=== PATIENT | male | born 1960 | race Caucasian/White ===

== ENCOUNTER 2016-10-27 03:43 | Inpatient (IN) | payer MEDICARE, MEDICAID ==
[~2016-10-27] VITALS: Ht 172.7 cm; Wt 114.0 kg
[2016-10-27] VITALS (8 sets, daily range): BP systolic 79–149; BP diastolic 50–82
--- NOTE | ~2016-10-27 | CON ---
[place], [place] REPORT OF CONSULTATION NAME: ANKUSH VALDEZ JR [facility] [id number] UNIT #: [id number] ROOM: 529 DOCTOR: [facility] BIRTH[facility]: 62 DOS: 10/30/2016 HISTORY OF PRESENT ILLNESS: The patient has a cold limb, right lower extremity, below the knee and cannot move the ankle on the right side or the toes with severe pain, probably total loss of circulation below the knee, most likely it could have happened a few hours ago and according to history, probably may not salvage the right lower extremity below the knee, but we will try to do the angiogram and try to reestablish the flow and starting the heparin right away. The patient has history of neuropathy with diabetes. He felt that is what caused the problem and he came through the Emergency Room. The patient did not feel any chest pain, lightheadedness, or shortness of breath. Quit smoking 5 weeks ago. The patient was a chronic smoker. The patient complained of numbness, pain in the right leg. He was ambulating prior to that and now he cannot ambulate and he does not have any feeling in the right foot or the ankle, or right lower extremity below the knee. He is able to bend the knee and bend at the hip, but below that he is going cold as an ice. No syncope or presyncope. PHYSICAL EXAMINATION: VITAL SIGNS: Afebrile, temperature 98.3, heart rate is about 60, respiratory rate is 20, blood pressure 106/48. NECK: Supple. LUNGS: No rales. HEART: S1, S2 regular. No gallops. ABDOMEN: Soft. EXTREMITIES: Pale on the right lower extremity, some extent left, and cool to touch. No pulses. Arterial study shows no flow in the right lower extremity; left, there is some flow, but still hard to get the ankle-brachial index with severe atherosclerotic vessels. Venous Doppler, negative, no deep vein thrombosis. Color is good. Not able to move the ankle or the foot on the right side. Left side is intact. RECTAL: Deferred and unrelated. GENITAL: Deferred and unrelated. SKIN: No open wounds were noted. Bowie classification 5 on the peripheral arterial disease. LABORATORY DATA: Electrolytes are unremarkable. BUN is 12, creatinine is 1, GFR is normal. Liver functions are unremarkable. Hemoglobin is 15.4, WBC count is 6.8, and platelet count is 144 optimal. Urine is positive for more than 100,000 Proteus mirabilis. So, begin antibiotics. Venous Doppler unremarkable. ASSESSMENT: The patient is diabetic and has ischemic limb, right lower extremity below the knee. Severe peripheral arterial disease with no deep vein thrombosis, and diabetic neuropathy and history of hypertension. PLAN: Peripheral arteriogram and intervention, possible thrombolysis and vascular surgical consult, but the patient was warned the chance there is no sensation, unable to move the ankle and the foot with a lot of pain, it is unlikely that it is a viable extremity, right side below the knee potential amputation was explained and discussed with the nursing staff also. Options, [place], [place] REPORT OF CONSULTATION NAME: ANKUSH VALDEZ JR UNIT #: [id number] ROOM: 529 DOCTOR: [facility] BIRTH[facility]: 62 procedures, complications, morbidity, mortality, and risks were explained. Prognosis is guarded. I will discuss with the hospitalist. SIDNEY LEWIS MD CM:CONSTR:REPORT OF CONSULTATION [id number] 11/01/16 0717 venessa LOPEZ DO
[~2016-10-27 03:43] MED LIST: AMARYL4 MG PO; AMITRIPTYLINE25 MG PO; AMLODIPINE5 MG PO; ASPIRIN81 M1 PO; CELEXA20 MG; CIPROFLOXACIN250 MG PO; CYCLOBENZAPRINE10 MG PO; FUROSEMIDE PO; FUROSEMIDE40 MG PO; GABAPENTIN300 MG PO; HYDROCODONE BIT1 T11 PO; JANUVIA100 MG PO; KCL PO; KEFLEX500 M1 PO; LANTUS SOLOS100 U/M1 IJ; LISINOPRIL20 MG PO; Lopressor25 MG; METFORMIN1000 MG; METOPROLOL TART50 M1 PO; NAPROXEN500 M1 PO; NORVASC2.5 MG PO; NOVOLOG 70/30 M10 ML SC; NOVOLOG FLEX100 U/ML IJ; PRAVACHOL20 MG; PRAVASTATIN SOD80 MG PO; SYNTHROID,LEVO50 MCG PO; VICTOZA6 MG/ML SC; VITAMIN D1000 IU PO
[2016-10-27 04:35] LABS: BASO % 0.3 % (0.0-1.0); EOS % 0.4 % (1.0-4.0); IG # 0.1 10*3/uL (0.0-0.1); LYMPH # 1.6 10*3/uL (1.3-4.4); LYMPH % 17.9 % (27.0-41.0); MEAN CELL VOLUME 94.8 fl (80.0-94.0); MEAN CORPUSCULAR HGB 31.6 pg (27.0-31.0); MEAN CORPUSCULAR HGB CONC 33.3 g/dl (33.0-37.0); MEAN PLATELET VOLUME 9.3 fl (9.6-12.3); MONO # 0.9 10*3/uL (0.1-1.0); NEUT # 6.4 10*3/uL (2.3-7.9); NEUT % 70.6 % (47.0-73.0); PLATELET COUNT AUTOMATED 215 10*3/uL (130-400); RED BLOOD COUNT 6.01 10*6/uL (4.50-5.90); RED CELL DISTRI WIDTH 12.7 % (0-14.5); WHITE BLOOD COUNT 9.1 10*3/uL (4.8-10.8)
[2016-10-27 04:48] LABS: POTASSIUM 4.5 mmol/L (3.5-5.1)
[2016-10-27 08:30] LABS: POTASSIUM 4.2 mmol/L (3.5-5.1)
[2016-10-27 08:53] LABS: ALBUMIN 2.5 gm/dl (3.1-4.5); BILIRUBIN, DIRECT 0.2 mg/dL (0.0-0.2); BILIRUBIN, TOTAL 0.7 mg/dl (0.2-1.0); MAGNESIUM 2.1 mg/dL (1.5-2.1); TOTAL PROTEIN 6.6 gm/dL (6.4-8.2); TROPONIN I 0.032 ng/ml (<0.045)
[2016-10-27] MEDS ORDERED: LISINOPRIL20 MG PO (10:53)
[2016-10-27 12:56] LABS: BILIRUBIN NEGATIVE (NEGATIVE); BLOOD TRACE-INTACT (NEGATIVE); CLARITY SL CLOUDY (CLEAR); COLOR YELLOW (YELLOW); GLUCOSE 3+ (NEGATIVE); KETONE 3+ (NEGATIVE); LEUKO ESTERASE 1+ (NEGATIVE); NITRITE POSITIVE (NEGATIVE); PH 8.5 (5.0-9.0); PROTEIN 1+ (NEGATIVE); UROBILINOGEN 0.2 E.U./dl (0.2-1.0)
[2016-10-27 13:09] LABS: BACTERIA 2+; CALCIUM OXALATE CRYSTALS 1+; URINE REFLEX COMMENT YES (NO); WBC 41-50 wbc/hpf (0-5)
[2016-10-27 18:10] LABS: CKMB 2.3 ng/ml (0.5-3.6); POTASSIUM 4.2 mmol/L (3.5-5.1); TROPONIN I 0.027 ng/ml (<0.045)
[2016-10-27 20:36] LABS: BUN 27 mg/dl (7-24); CARBON DIOXIDE 21 mmol/L (21-32); CHLORIDE 107 mmol/L (98-107); EST GLOM FILT AFRICAN AMERICAN > 60 ml/min; GLUCOSE 231 mg/dL (65-99); POTASSIUM 3.7 mmol/L (3.5-5.1); SODIUM 144 mmol/L (136-145)
[2016-10-28] VITALS: BP 106/79
[2016-10-28 00:25] LABS: CKMB 2.3 ng/ml (0.5-3.6); POTASSIUM 3.2 mmol/L (3.5-5.1)
[2016-10-28 00:51] LABS: TROPONIN I 0.048 ng/ml (<0.045)
[2016-10-28 03:00] LABS: BUN 24 mg/dl (7-24); CARBON DIOXIDE 26 mmol/L (21-32); CHLORIDE 110 mmol/L (98-107); EST GLOM FILT AFRICAN AMERICAN > 60 ml/min; GLUCOSE 104 mg/dL (65-99); POTASSIUM 3.8 mmol/L (3.5-5.1); SODIUM 146 mmol/L (136-145)
[2016-10-28 04:00] VITALS: BP 116/83
[2016-10-28 06:07] LABS: BASO % 0.1 % (0.0-1.0); EOS # 0.1 10*3/uL (0.0-0.4); EOS % 1.5 % (1.0-4.0); LYMPH # 1.7 10*3/uL (1.3-4.4); LYMPH % 24.7 % (27.0-41.0); MEAN CELL VOLUME 93.8 fl (80.0-94.0); MEAN CORPUSCULAR HGB 31.7 pg (27.0-31.0); MEAN CORPUSCULAR HGB CONC 33.8 g/dl (33.0-37.0); MEAN PLATELET VOLUME 9.4 fl (9.6-12.3); MONO # 0.8 10*3/uL (0.1-1.0); MONO % 11.3 % (3.0-9.0); NEUT # 4.2 10*3/uL (2.3-7.9); NEUT % 62.1 % (47.0-73.0); PLATELET COUNT AUTOMATED 140 10*3/uL (130-400); RED CELL DISTRI WIDTH 12.6 % (0-14.5); WHITE BLOOD COUNT 6.7 10*3/uL (4.8-10.8)
[2016-10-28 06:08] LABS: HEMOGLOBIN 15.2 g/dl (14.0-18.0)
[2016-10-28 06:22] LABS: CKMB 1.8 ng/ml (0.5-3.6); POTASSIUM 3.7 mmol/L (3.5-5.1)
[2016-10-28 06:26] LABS: HEMOGLOBIN A1c 13.4 % (4.8-5.6); TROPONIN I 0.065 ng/ml (<0.045)
[2016-10-28 06:37] LABS: PROTHROMBIN TIME 10.3 SECONDS (9.0-12.4)
[2016-10-28 06:41] LABS: ALBUMIN 2.2 gm/dl (3.1-4.5); ALKALINE PHOSPHATASE 82 U/L (45-117); BILIRUBIN, TOTAL 0.5 mg/dl (0.2-1.0); BUN 22 mg/dl (7-24); CARBON DIOXIDE 27 mmol/L (21-32); CHLORIDE 108 mmol/L (98-107); CHOLESTEROL 200 mg/dL (<200); EST GLOM FILT AFRICAN AMERICAN > 60 ml/min; GLUCOSE 150 mg/dL (65-99); HDL CHOLESTEROL 36 mg/dl (40-60); MAGNESIUM 2.1 mg/dL (1.5-2.1); PHOSPHOROUS 1.3 mg/dL (2.5-4.9); POTASSIUM 3.8 mmol/L (3.5-5.1); SGOT/AST 17 IU/L (3-35); SGPT/ALT 14 U/L (12-78); SODIUM 143 mmol/L (136-145); TOTAL PROTEIN 5.7 gm/dL (6.4-8.2)
[2016-10-28 06:46] LABS: LDL CHOLESTEROL 126 mg/dL (9-159); TRIGLYCERIDES 191 mg/dl (<150); VLDL CHOLESTEROL 38 mg/dL (6-40)
[2016-10-28 07:01] LABS: VITAMIN D, 25-HYDROXY 17.1 ng/mL (30-100)
[2016-10-28 07:02] LABS: FOLIC ACID 6.27 ng/mL (>5.38)
[2016-10-28 08:00] VITALS: BP 88/52
[2016-10-28 12:00] VITALS: BP 82/54
[2016-10-28 16:00] VITALS: BP 100/63
[2016-10-28 20:00] VITALS: BP 116/53
[2016-10-29] VITALS: BP 119/84
[2016-10-29 04:00] VITALS: BP 157/80
[2016-10-29 06:09] LABS: ALBUMIN 2.2 gm/dl (3.1-4.5); ALKALINE PHOSPHATASE 90 U/L (45-117); BILIRUBIN, TOTAL 0.5 mg/dl (0.2-1.0); CARBON DIOXIDE 20 mmol/L (21-32); CHLORIDE 107 mmol/L (98-107); EST GLOM FILT AFRICAN AMERICAN > 60 ml/min; GLUCOSE 239 mg/dL (65-99); POTASSIUM 3.9 mmol/L (3.5-5.1); SGOT/AST 17 IU/L (3-35); SGPT/ALT 11 U/L (12-78); SODIUM 141 mmol/L (136-145); TOTAL PROTEIN 5.8 gm/dL (6.4-8.2)
[2016-10-29 06:16] LABS: BASO % 0.4 % (0.0-1.0); EOS # 0.1 10*3/uL (0.0-0.4); EOS % 1.5 % (1.0-4.0); HEMATOCRIT 45.9 % (42.0-52.0); HEMOGLOBIN 15.4 g/dl (14.0-18.0); IG # 0.1 10*3/uL (0.0-0.1); LYMPH # 1.5 10*3/uL (1.3-4.4); LYMPH % 21.9 % (27.0-41.0); MEAN CELL VOLUME 93.3 fl (80.0-94.0); MEAN CORPUSCULAR HGB 31.3 pg (27.0-31.0); MEAN CORPUSCULAR HGB CONC 33.6 g/dl (33.0-37.0); MEAN PLATELET VOLUME 9.9 fl (9.6-12.3); MONO # 0.8 10*3/uL (0.1-1.0); MONO % 11.1 % (3.0-9.0); NEUT # 4.4 10*3/uL (2.3-7.9); NEUT % 64.4 % (47.0-73.0); PLATELET COUNT AUTOMATED 144 10*3/uL (130-400); RED BLOOD COUNT 4.92 10*6/uL (4.50-5.90); RED CELL DISTRI WIDTH 12.8 % (0-14.5); WHITE BLOOD COUNT 6.8 10*3/uL (4.8-10.8)
[2016-10-29 06:26] LABS: BUN 12 mg/dl (7-24)
[2016-10-29 08:00] VITALS: BP 136/76
[2016-10-29 16:00] VITALS: BP 106/48
[2016-10-29 19:16] LABS: BASO % 0.3 % (0.0-1.0); EOS # 0.1 10*3/uL (0.0-0.4); EOS % 1.2 % (1.0-4.0); HEMATOCRIT 41.6 % (42.0-52.0); IG # 0.1 10*3/uL (0.0-0.1); LYMPH # 1.6 10*3/uL (1.3-4.4); LYMPH % 20.3 % (27.0-41.0); MEAN CELL VOLUME 94.8 fl (80.0-94.0); MEAN CORPUSCULAR HGB 31.9 pg (27.0-31.0); MEAN CORPUSCULAR HGB CONC 33.7 g/dl (33.0-37.0); MEAN PLATELET VOLUME 9.3 fl (9.6-12.3); MONO # 0.9 10*3/uL (0.1-1.0); MONO % 11.4 % (3.0-9.0); NEUT # 5.1 10*3/uL (2.3-7.9); NEUT % 66.1 % (47.0-73.0); RED BLOOD COUNT 4.39 10*6/uL (4.50-5.90); RED CELL DISTRI WIDTH 12.8 % (0-14.5); WHITE BLOOD COUNT 7.7 10*3/uL (4.8-10.8)
[2016-10-29 19:17] LABS: PLATELET COUNT AUTOMATED 189 10*3/uL (130-400)
[2016-10-29 20:00] VITALS: BP 116/63
[2016-10-30] VITALS: BP 110/67
[2016-10-30 08:00] VITALS: BP 140/88
[2016-10-30 09:04] LABS: BASO % 0.4 % (0.0-1.0); EOS # 0.2 10*3/uL (0.0-0.4); EOS % 2.3 % (1.0-4.0); HEMATOCRIT 42.8 % (42.0-52.0); HEMOGLOBIN 14.4 g/dl (14.0-18.0); IG # 0.1 10*3/uL (0.0-0.1); LYMPH # 1.9 10*3/uL (1.3-4.4); MEAN CELL VOLUME 93.7 fl (80.0-94.0); MEAN CORPUSCULAR HGB 31.5 pg (27.0-31.0); MEAN CORPUSCULAR HGB CONC 33.6 g/dl (33.0-37.0); MEAN PLATELET VOLUME 9.4 fl (9.6-12.3); MONO # 0.8 10*3/uL (0.1-1.0); MONO % 10.7 % (3.0-9.0); NEUT # 4.3 10*3/uL (2.3-7.9); NEUT % 59.9 % (47.0-73.0); PLATELET COUNT AUTOMATED 193 10*3/uL (130-400); RED BLOOD COUNT 4.57 10*6/uL (4.50-5.90); RED CELL DISTRI WIDTH 12.9 % (0-14.5); WHITE BLOOD COUNT 7.1 10*3/uL (4.8-10.8)
[2016-10-30 09:14] LABS: PROTHROMBIN TIME 10.2 SECONDS (9.0-12.4)
== END 2016-10-30 10:00 | disposition short-term general hospital (02) | DRG 177 ==
LOC: ED 03:43 → EDHOLD 08:47 → 5E 08:47 → ICCU 08:47 → 4E 09:10 → ICCU 12:54 → 5E 10-29 12:14
PROVIDERS: Emergency Medicine; Emergency Medicine Emergency Medical Services; Family Medicine; Internal Medicine; Internal Medicine Cardiovascular Disease
PROC: 02HV33Z Insertion of Infusion Device into Superior Vena Cava, Percutaneous Approach (ICD-10-PCS; principal; 2016-10-27)
DX: J15.6 Pneumonia due to other Gram-negative bacteria (principal); E13.10 Other specified diabetes mellitus with ketoacidosis without coma; N17.0 Acute kidney failure with tubular necrosis; E43 Unspecified severe protein-calorie malnutrition; E87.0 Hyperosmolality and hypernatremia; E86.0 Dehydration; Z68.41 Body mass index [BMI] 40.0-44.9, adult; E55.9 Vitamin D deficiency, unspecified; E03.9 Hypothyroidism, unspecified; K21.9 Gastro-esophageal reflux disease without esophagitis; I10 Essential (primary) hypertension; E78.5 Hyperlipidemia, unspecified; E66.01 Morbid (severe) obesity due to excess calories; E87.6 Hypokalemia; M79.604 Pain in right leg; Z88.8 Allergy status to other drugs, medicaments and biological substances; Z79.4 Long term (current) use of insulin; Z79.82 Long term (current) use of aspirin; Z79.899 Other long term (current) drug therapy; Z95.1 Presence of aortocoronary bypass graft

== ENCOUNTER → 2018-01-14 | Outpatient (CLI) | payer MEDICARE | END | disposition home or self-care (01) | LOC: WOUNDCARE 04:38 | DX: E11.622 Type 2 diabetes mellitus with other skin ulcer (principal); I87.311 Chronic venous hypertension (idiopathic) with ulcer of right lower extremity; L97.312 Non-pressure chronic ulcer of right ankle with fat layer exposed; I87.2 Venous insufficiency (chronic) (peripheral); E11.59 Type 2 diabetes mellitus with other circulatory complications; E11.51 Type 2 diabetes mellitus with diabetic peripheral angiopathy without gangrene; Z95.1 Presence of aortocoronary bypass graft; Z87.891 Personal history of nicotine dependence; Z89.512 Acquired absence of left leg below knee ==

== ENCOUNTER → 2018-01-30 | Outpatient (CLI) | payer MEDICARE | END | disposition home or self-care (01) | LOC: WOUNDCARE 00:45 | DX: E11.622 Type 2 diabetes mellitus with other skin ulcer (principal); I87.311 Chronic venous hypertension (idiopathic) with ulcer of right lower extremity; L97.311 Non-pressure chronic ulcer of right ankle limited to breakdown of skin; E11.59 Type 2 diabetes mellitus with other circulatory complications; E11.52 Type 2 diabetes mellitus with diabetic peripheral angiopathy with gangrene; A48.0 Gas gangrene; I10 Essential (primary) hypertension; Z95.1 Presence of aortocoronary bypass graft; Z87.891 Personal history of nicotine dependence; Z89.512 Acquired absence of left leg below knee ==

== ENCOUNTER → 2018-02-04 | Outpatient (CLI) | payer MEDICARE | END | disposition home or self-care (01) | LOC: WOUNDCARE 00:22 | DX: I87.311 Chronic venous hypertension (idiopathic) with ulcer of right lower extremity (principal); E11.622 Type 2 diabetes mellitus with other skin ulcer; L97.811 Non-pressure chronic ulcer of other part of right lower leg limited to breakdown of skin; L97.311 Non-pressure chronic ulcer of right ankle limited to breakdown of skin; E11.52 Type 2 diabetes mellitus with diabetic peripheral angiopathy with gangrene; A48.0 Gas gangrene; I10 Essential (primary) hypertension; Z89.512 Acquired absence of left leg below knee; Z87.891 Personal history of nicotine dependence; Z95.1 Presence of aortocoronary bypass graft ==

== ENCOUNTER → 2018-02-11 | Outpatient (CLI) | payer MEDICARE | END | disposition home or self-care (01) | LOC: WOUNDCARE 03:20 | DX: E11.622 Type 2 diabetes mellitus with other skin ulcer (principal); L97.312 Non-pressure chronic ulcer of right ankle with fat layer exposed; I87.311 Chronic venous hypertension (idiopathic) with ulcer of right lower extremity; I10 Essential (primary) hypertension; E11.52 Type 2 diabetes mellitus with diabetic peripheral angiopathy with gangrene; A48.0 Gas gangrene; Z89.512 Acquired absence of left leg below knee; Z87.891 Personal history of nicotine dependence; Z95.1 Presence of aortocoronary bypass graft ==

== ENCOUNTER → 2018-02-20 | Outpatient (CLI) | payer MEDICARE | END | disposition home or self-care (01) | LOC: US 01:48 | DX: I74.3 Embolism and thrombosis of arteries of the lower extremities (principal); I25.10 Atherosclerotic heart disease of native coronary artery without angina pectoris; I10 Essential (primary) hypertension; E11.59 Type 2 diabetes mellitus with other circulatory complications; Z87.891 Personal history of nicotine dependence ==

== ENCOUNTER → 2018-02-27 | Outpatient (CLI) | payer MEDICARE | END | disposition home or self-care (01) | LOC: WOUNDCARE 08:39 | DX: I87.311 Chronic venous hypertension (idiopathic) with ulcer of right lower extremity (principal); E11.622 Type 2 diabetes mellitus with other skin ulcer; L97.311 Non-pressure chronic ulcer of right ankle limited to breakdown of skin; E11.52 Type 2 diabetes mellitus with diabetic peripheral angiopathy with gangrene; A48.0 Gas gangrene; Z89.512 Acquired absence of left leg below knee; Z87.891 Personal history of nicotine dependence ==

== ENCOUNTER → 2018-03-06 | Outpatient (CLI) | payer MEDICARE | LOC: WOUNDCARE 01:49 | DX: E11.622 Type 2 diabetes mellitus with other skin ulcer (principal); I87.311 Chronic venous hypertension (idiopathic) with ulcer of right lower extremity; L97.311 Non-pressure chronic ulcer of right ankle limited to breakdown of skin; E11.52 Type 2 diabetes mellitus with diabetic peripheral angiopathy with gangrene; A48.0 Gas gangrene; Z89.512 Acquired absence of left leg below knee; Z87.891 Personal history of nicotine dependence ==

== ENCOUNTER → 2018-03-13 | Outpatient (CLI) | payer MEDICARE | END | disposition home or self-care (01) | LOC: WOUNDCARE 04:01 | DX: I87.311 Chronic venous hypertension (idiopathic) with ulcer of right lower extremity (principal); E11.622 Type 2 diabetes mellitus with other skin ulcer; L97.311 Non-pressure chronic ulcer of right ankle limited to breakdown of skin; E11.51 Type 2 diabetes mellitus with diabetic peripheral angiopathy without gangrene; A48.0 Gas gangrene; Z87.891 Personal history of nicotine dependence; Z89.512 Acquired absence of left leg below knee ==